=== PATIENT | female | born 1980 | race Caucasian/White ===

== ENCOUNTER 2017-01-21 20:46 | Inpatient (IN) | payer OTHER ==
[~2017-01-21] VITALS: Ht 167.6 cm; Wt 76.3 kg
[~2017-01-21 20:46] MED LIST: 1-ME1LIQ PO; ACETAMINOPHEN 325 MG TAB PO PRN; BACT2OIN TOP; BACT800T5 PO; CEPH500C3 PO; CLON.1 PO; CLON0.1T PO; HYDR-3133 PO; IBUP-238 PO; LORA5SOL3 PO; METO25TA3 PO; MONT10 PO; NALOXONE HCL 0.4 MG/ML AMP IV PRN; SERT-129 PO; SODIUM CHLOR 0.9% 1000 ML INJ 1,000 ML IV SCH; SODIUM CHLORIDE 0.9% FLUSH 10 ML FLUSH IV FLUSH PRN; TRAZ50TA4 PO; Vancomycin Consult Pharmacy 1 EA OTHER SCH
[2017-01-21] MEDS ORDERED: SODIUM CHLORIDE 0.9% FLUSH 10 ML FLUSH IV FLUSH SCH (21:00)
[2017-01-21] MEDS ORDERED: DOCUSATE SODIUM 50 MG/SENNA 8.6 MG TAB PO SCH (21:00)
[2017-01-21] MEDS: MORPHINE SULFATE 4 MG/ML INJ IV PRN (21:33)
[2017-01-21 21:45] VITALS: BP 128/72; PULSE 99; RESP 18; TEMP 96.8; O2SAT 99
[2017-01-21] MEDS: PIPERACIL-TAZO 4.5 GM PREMIX 100 ML IV SCH (22:52)
[2017-01-22] MEDS ORDERED: VANCOMYCIN 1,500 MG/NS 500 ML IV ONE ×2
[2017-01-22 00:30] VITALS: BP 118/71; PULSE 90; RESP 16; TEMP 98; O2SAT 99
[2017-01-22] MEDS: MORPHINE SULFATE 4 MG/ML INJ IV PRN ×3 (00:33→07:26)
[2017-01-22] MEDS ORDERED: VANCOMYCIN INJ 1,000 MG in SODIUM CHLOR 0.9% 250 ML INJ 250 ML IV SCH (04:00)
[2017-01-22] MEDS: PIPERACIL-TAZO 4.5 GM PREMIX 100 ML IV SCH (04:15)
[2017-01-22 04:30] VITALS: BP 128/75; PULSE 87; RESP 18; TEMP 96.9; O2SAT 98
[2017-01-22 07:50] VITALS: BP 119/57; PULSE 84; RESP 20; TEMP 97.7; O2SAT 100
[2017-01-22 09:29] VITALS: O2SAT 98
[2017-01-22] MEDS ORDERED: VANCOMYCIN INJ 1,250 MG in SODIUM CHLOR 0.9% 250 ML INJ 250 ML IV SCH (12:00)
[2017-01-23] MEDS ORDERED: PHARMACY ORDERED LAB ONE (11:45)
== END 2017-01-22 10:00 | disposition left against medical advice (07) | DRG 951 ==
LOC: NEDDLT 20:46 → HOCA 21:01
PROVIDERS: ADMIT Family Medicine; ATTEND Family Medicine
DX: Z53.29 Procedure and treatment not carried out because of patient's decision for other reasons (principal)
CPT/HCPCS: 70491; 80053; 84702; 85025; 96365; 96368; J1170; J2270; J2543; J3370; J7030; J7040; J7050; Q9967